=== PATIENT | female | born 1975 | race Caucasian/White ===

== ENCOUNTER 2021-08-28 22:40 | Observation (INO) | payer BC ==
[2021-08-28 23:32] LABS: CHLORIDE,CL 103 mEq/L (98-106); SODIUM,NA 142 mEq/L (136-145)
[2021-08-29] MEDS: Nitroglycerin 0.4 MG Tab.SL SL ONE (00:09)
[2021-08-29] MEDS: Aspirin 81 MG Tab.Chew PO ONE (00:09)
--- NOTE | 2021-08-29 00:32 | EDM.PDOC ---
ED HPI GENERAL MEDICAL PROBLEM - General Chief Complaint: Chest Pain Stated Complaint: chest pain Time Seen by Provider: 08/28/21 23:00 Source of Information: Reports: Patient History Limitations: Reports: No Limitations - History of Present Illness INITIAL COMMENTS - FREE TEXT/NARRATIVE: Miguel is a 46 yo female who presents to the ED with complaints of chest pain via private vehicle. She states she was at the [facility] [place] and noticed some chest discomfort. States when leaving she felt it was getting worse and having some difficulty with shortness of breath. She felt it was a 7 out [address] home[address] Decided to stop in [place] as she has a significant past cardiac history. States she did have CABG in 2006. Ended up having stents placed in 2008, 2010 and 2015. States she did have a dull headache today but didn't think anything of it. 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 States she had a Lexiscan a couple months ago d/t prior history of chest pain, which was normal. Admits this has happened two other times and both times it was found she had low potassium. 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 States she is currently being treated for bronchitis with augmentin and an inhaler. Was COVID tested and negative. Middle Mid-Sternal Chest Pain Score (Numeric/FACES): 7 - Related Data Allergies Allergy/AdvReac Type Severity Reaction Status Date / Time ceftriaxone sodium Allergy Shortness Verified 08/28/21 23:14 [From Rocephin] of Breath codeine Allergy Stomach Verified 08/28/21 23:14 Upset erythromycin base Allergy Stomach Verified 08/28/21 23:14 Upset hydromorphone [From Dilaudid] Allergy Agitation Verified 08/28/21 23:14 psyllium [From Metamucil] Allergy Anaphylactic Verified 08/28/21 23:14 Shock Home Meds: Home Meds Rosuvastatin Calcium [Crestor] 40 mg PO DAILY 08/13/18 [History] Ticagrelor [Brilinta] 90 mg PO BID 08/13/18 [History] Magnesium Oxide 500 mg PO DAILY tablet 12/31/18 [Rx] Nitroglycerin [Nitrostat] 0.4 mg SL ASDIRECTED PRN #30 tab.subl 12/31/18 [Rx] Acetaminophen [Tylenol] 650 mg PO Q4H PRN 02/17/21 [History] Cholecalciferol (Vitamin D3) [Vitamin D3] 1,000 unit PO DAILY 02/17/21 [History] EPINEPHrine [Epinephrine] 0.3 mg IM ASDIRECTED PRN 02/17/21 [History] Levothyroxine 125 mcg PO ACBREAKFAST 02/17/21 [History] Mirtazapine 15 mg PO BEDTIME 02/17/21 [History] Ustekinumab [Stelara] 90 mg SQ ASDIRECTED 02/17/21 [History] Albuterol [Ventolin HFA] 108 mcg INH ASDIRECTED PRN 08/28/21 [History] Amoxicillin/Clavulanate K [Augmentin 875-125 MG] 1 tab PO BID 08/28/21 [History] Aspirin 325 mg PO DAILY 08/28/21 [History] Betamethasone Valerate 1 applic TOP DAILY PRN 08/28/21 [History] Clobetasol [Clobetasol Propionate 0.05%] 1 applic TOP ASDIRECTED 08/28/21 [History] Fludrocortisone [Florinef] 0.5 mg PO ASDIRECTED 08/28/21 [History] Hydrocortisone 10 mg PO TID 08/28/21 [History] dexAMETHasone [Decadron] 1 ml INJECT ASDIRECTED PRN 08/28/21 [History] guaiFENesin [Guaifenesin ER] 600 mg PO BID 08/28/21 [History] lisinopriL [Lisinopril] 20 mg PO DAILY 08/28/21 [History] metFORMIN HCl [Metformin HCl ER] 1,000 mg PO DAILY 08/28/21 [History] Past Medical History HEENT History: Reports: Impaired Vision Cardiovascular History: Reports: Bypass, High Cholesterol, Hypertension, [place], Stents, Other (See Below) Other Cardiovascular History: 2007 bypass. 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: Musculoskeletal History: Reports: Arthritis, Back Pain, Chronic, Other (See Below) Other Musculoskeletal History: knee, low back pain Psychiatric History: Reports: Anxiety, Bipolar, Depression Endocrine/Metabolic History: Reports: Arcadia's Disease, Diabetes, Type II, Hy pokalemia, Hypothyroidism Hematologic History: Reports: Anticoagulation Therapy Immunologic History: Reports: Immunosuppression Dermatologic History: Reports: Psoriasis - Past Surgical History Cardiovascular Surgical History: Reports: Coronary Artery Bypass, Coronary Artery Stent, Other (See Below) Other Cardiovascular Surgeries/Procedures: inferior vena cava balloon Other Respiratory Surgeries/Procedures: treated for bronchitis at this time GI Surgical History: Reports: Cholecystectomy, Colonoscopy Female Surgical History: Reports: Hysterectomy Endocrine Surgical History: Reports: None Neurological Surgical History: Reports: Laminectomy - Past Imaging History Past Imaging History: Reports: CAT Scan, Xray Social & Family History - Family History Family Medical History: No Pertinent Family History - Tobacco Use Tobacco Use Status *Q: Former Tobacco User Years of Tobacco use: 20 Packs/Tins Daily: 0.5 Used Tobacco, but Quit: Yes Month/Year Tobacco Last Used: 5 - Caffeine Use Caffeine Use: Reports: Soda - Recreational Drug Use Recreational Drug Use: No ED ROS GENERAL - Review of Systems Review Of Systems: See Below Constitutional: Denies: Fever, Chills HEENT: Reports: Sinus Problem Respiratory: Reports: Shortness of Breath. Denies: Wheezing, Pleuritic Chest Pain, Cough, Sputum Cardiovascular: Reports: Chest Pain, Blood Pressure Problem. Denies: Edema, Lightheadedness, Palpitations, Syncope GI/Abdominal: Reports: Diarrhea (chronic). Denies: Abdominal Pain, Nausea, Vomiting : Reports: No Symptoms Skin: Reports: No Symptoms Neurological: Reports: Headache Psychiatric: Reports: No Symptoms Hematologic/Lymphatic: Reports: No Symptoms Immunologic: Reports: No Symptoms ED EXAM, GENERAL - Physical Exam Exam: See Below Exam Limited By: No Limitations General Appearance: Alert, WD/WN, No Apparent Distress Ears: Normal External Exam, Hearing Grossly Normal Nose: Normal Inspection, No Blood Throat/Mouth: Normal Inspection, Normal Lips, Normal Teeth, Normal Gums, Normal Oropharynx, Normal Voice, No Airway Compromise Head: Atraumatic, Normocephalic Neck: Normal Inspection, Supple Respiratory/Chest: No Respiratory Distress, Lungs Clear, Normal Breath Sounds, No Accessory Muscle Use Cardiovascular: Normal Peripheral Pulses, Regular Rate, Rhythm, No Edema, No Murmur GI/Abdominal: Normal Bowel Sounds, Soft, Non-Tender, No Organomegaly, No Distention, No Mass Extremities: Normal Inspection, No Pedal Edema Neurological: Alert, Oriented, Normal Cognition, No Motor/Sensory Deficits Psychiatric: Normal Affect, Normal Mood Skin Exam: Warm, Dry, Intact, Normal Color, No Rash #1 Interpretation EKG Date: 08/28/21 Time: 22:45 Rhythm: NSR Rate (Beats/Min): 87 P-Wave: Present QRS: Normal ST-T: Normal Comparison: NA - No Prior EKG Course - Vital Signs Last Recorded V/S: Last Vital Signs Temp 97.8 F 08/28/21 22:45 Pulse 84 08/29/21 00:09 Resp 15 08/28/21 22:45 BP 183/113 H 08/29/21 00:09 Pulse Ox 98 08/28/21 22:45 - Orders/Labs/Meds Orders: Active Orders 24 hr Category Date Time Status Patient Status Manage Transfer [TRANSFER] Routine ADT 08/29/21 00:12 Active Chest 2V [CR] Routine Exams 08/28/21 Taken Resuscitation Status Routine Resus Stat 08/29/21 00:13 Ordered Labs: Laboratory Tests 08/28/21 08/28/21 08/28/21 Range/Units 23:14 23:14 23:14 WBC 9.3 (4.0-11.0) 10^3/uL RBC 4.59 (4.00-5.50) x10^6/uL Hgb 13.7 (12.0-16.0) g/dL Hct 39.3 (37.0-47.0) % MCV 85.6 (83.0-97.0) fL MCH 29.8 (27.0-32.0) pg MCHC 34.9 (32.0-36.0) g/dL RDW Coeff of Jorge 13.8 (11.0-15.0) % Plt Count 307 (150-400) 10^3/uL Immature Gran % (Auto) 0.1 (0.0-4.9) % Neut % (Auto) 51.3 (41-71) % Lymph % (Auto) 34.0 (24-44) % [place] % (Auto) 6.7 (0-10) % Eos % (Auto) 7.0 H (0-6) % Baso % (Auto) 0.9 (0-1) % Neut # (Auto) 4.75 (1.80-8.00) x10^3/uL Lymph # (Auto) 3.15 (0.60-5.00) 10^3/uL [place] # (Auto) 0.62 (0.00-1.50) 10^3/uL Eos # (Auto) 0.65 (0.00-1.50) 10^3/uL Baso # (Auto) 0.08 (0.00-0.50) 10^3/uL Immature Gran # (Auto) 0.01 (0.00-0.49) 10^3/uL PT 9.3 L (9.7-12.3) SEC INR 0.84 L (0.92-1.18) APTT 24.0 (23.2-32.3) SEC Sodium 142 (136-145) mEq/L Potassium 3.1 L (3.5-5.0) mEq/L Chloride 103 (98-106) mEq/L Carbon Dioxide 28 (21-32) mmol/L BUN 10 (7-18) mg/dL Creatinine 1.0 (0.6-1.0) mg/dL Est Cr Clr Drug Dosing TNP Estimated GFR (MDRD) 59 L (>=60) mL/min Glucose 151 H (75-99) mg/dL Calcium 9.0 (8.4-10.1) mg/dL Total Bilirubin 0.3 (0.0-1.0) mg/dL AST 15 (15-37) U/L ALT 32 (12-78) U/L Alkaline Phosphatase 103 (46-116) U/L Lactate Dehydrogenase 167 (100-190) U/L Creatine Kinase 107 (21-215) U/L Troponin I High Sens 14.4 (<=51) pg/mL Total Protein 7.8 (6.4-8.2) g/dL Albumin 3.8 (3.4-5.0) g/dL Lipase 126 (73-393) U/L Meds: Medications Discontinued Medications Generic Name Dose Route Start Last Admin Trade Name Freq PRN Reason Stop Dose Admin Aspirin 324 mg 08/28/21 22:55 08/29/21 00:09 Aspirin 81 Mg Tab.Chew PO 08/28/21 22:56 324 mg ONETIME ONE Administration Metoprolol Tartrate 25 mg 08/28/21 22:56 Metoprolol Tartrate 5 Mg/5 Ml Sdv IVPUSH 08/28/21 22:57 ONETIME ONE Nitroglycerin 0.4 mg 08/28/21 22:56 08/29/21 00:09 Nitroglycerin 0.4 Mg Tab.Sl SL 08/28/21 22:57 0.4 mg ONETIME ONE Administration Departure - Departure Time of Disposition: 00:20 Disposition: Refer to Observation Clinical Impression: Hypokalemia, Atypical chest pain Referrals: PCP,Not In Area [Primary Care Provider] - Sepsis Event Note (ED) - Evaluation Sepsis Screening Result: No Definite Risk - Focused Exam Vital Signs: Vital Signs Temp Pulse Pulse Resp BP BP Pulse Ox 08/29/21 00:09 84 183/113 H 08/28/21 22:45 97.8 F 84 15 183/113 H 98 - Problem List & Annotations (1) Atypical chest pain SNOMED Code(s): 106506398 Code(s): R07.89 - OTHER CHEST PAIN Status: Acute Current Visit: Yes (2) Hypokalemia SNOMED Code(s): 15639227 Code(s): E87.6 - HYPOKALEMIA Status: Acute Current Visit: Yes - My Orders Last 24 Hours: My Active Orders 08/28/21 Chest 2V [CR] Routine 08/29/21 00:12 Patient Status Manage Transfer [TRANSFER] Routine 08/29/21 00:13 Resuscitation Status Routine - Assessment/Plan Admission H&P: Please use this note as an admission H&P Last 24 Hours: My Active Orders 08/28/21 Chest 2V [CR] Routine 08/29/21 00:12 Patient Status Manage Transfer [TRANSFER] Routine 08/29/21 00:13 Resuscitation Status Routine Plan: Patient's cardiac work up was grossly unremarkable. Potassium was low tonight. With patient's significant cardiac history and low potassium will admit observation for potassium replacement and serial troponin levels. Patient verbalized understanding and in agreement. Chest x-ray negative tonight as well. Pain currently has subsided. Blood pressure is gradually coming down as well.
[2021-08-29] MEDS ORDERED: Sodium Chloride 0.9% 10 ML Syringe FLUSH PRN (00:33)
[2021-08-29] MEDS ORDERED: Morphine 2 MG/ML SYRINGE IVPUSH PRN (00:33)
[2021-08-29] MEDS ORDERED: Nitroglycerin 0.4 MG Tab.SL SL PRN (00:33)
[2021-08-29] MEDS ORDERED: Acetaminophen 325 MG Tab PO PRN (00:33)
[2021-08-29] MEDS: Metoprolol Tartrate 5 MG/5 ML SDV IVPUSH ONE (01:00)
[2021-08-29] MEDS: Potassium Chloride Riders 40 MEQ in Premix Bag 1 BAG IV ONE (01:04)
[2021-08-29] MEDS: Mirtazapine 15 MG Tab PO SCH (01:04)
[2021-08-29] MEDS: Sodium Chloride 0.9% 500 ML IV ONE (01:05)
[2021-08-29 07:36] LABS: CHLORIDE,CL 109 mEq/L (98-106); SODIUM,NA 143 mEq/L (136-145)
[2021-08-29] MEDS: Lisinopril 20 MG Tab PO SCH (07:45)
[2021-08-29] MEDS: Levothyroxine 125 MCG Tab PO SCH (07:45)
[2021-08-29] MEDS: Aspirin 325 MG Tab.EC PO SCH (07:45)
[2021-08-29] MEDS: Simvastatin 40 MG Tab PO SCH (07:45)
[2021-08-29 07:46] VITALS: BP 117/66
[2021-08-29] MEDS ORDERED: TICAGRELOR 90 MG PO SCH (08:00)
[2021-08-29] MEDS ORDERED: Hydrocortisone 20 MG Tab PO SCH ×2 (08:00→15:00)
[2021-08-29] MEDS: metFORMIN 500 MG Tab PO SCH (08:50)
[2021-08-29] MEDS: HYDROCORTISONE 10 MG PO SCH (08:57)
[2021-08-29 09:25] VITALS: PULSE 83
--- NOTE | 2021-08-30 06:37 | DISCH ---
ADMISSION DIAGNOSES: 1. Atypical chest pain. 2. Known history of coronary artery disease. 3. Hypokalemia. DISCHARGE DIAGNOSIS: 1. CHEST PAIN, RESOLVED. 2. HYPOKALEMIA, RESOLVED. 3. HYPERTENSION, IMPROVED. 4. KNOWN HISTORY OF CORONARY ARTERY DISEASE. 5. TYPE 2 DIABETES. 6. HYPERLIPIDEMIA. 7. HYPERTENSION. HISTORY: The patient is a complex 46-year-old female with known history of prior CABG and multiple cardiac stents. She has been having some issues with hypertension, sees Endocrinology apparently for an apparent history of hypoadrenalism. She has been having some issues with low potassium in the past and it sounds like whenever her potassium drops, she gets this atypical chest pain. 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 She is on Brilinta for her stents. [facility]yman admitted her because of the chest pain. Her initial EKG and cardiac enzymes were normal without signs of ischemia. HOSPITAL COURSE: The patient was given 40 mEq of KCl while here. Potassium went from 3.1 on admit to 3.5 within normal range now. The troponin remains negative. Her EKG once again shows no signs of any ischemia and the patient is symptom-free at this time. She looks stable for discharge. She needs follow up with her primary provider early next week for recheck on her potassium. No magnesium was ordered and I will get one this morning as she was hypokalemic on admit. Plan will be for her to discharge home with followup with her primary providers. COMPLICATIONS: During her stay were none. CONSULTATIONS: None. DISPOSITION: Discharge home. The patient will follow up with Teagan Fernando APRN in [place] for followup. HAILEY/TYE /[id number]
[2021-08-30] MEDS ORDERED: HYDROCORTISONE 10 MG PO SCH (08:00)
== END 2021-08-29 11:10 | disposition home or self-care (01) ==
LOC: CC.ED 22:40 → CC.MS 08-29 00:12 → UNDOADMOB 08-29 00:31 → CC.MS 08-29 00:31
PROVIDERS: ADMIT Physician Assistant Medical; ATTEND Family Medicine
DX: R07.89 Other chest pain (principal); E87.6 Hypokalemia; E78.00 Pure hypercholesterolemia, unspecified; I10 Essential (primary) hypertension; I25.2 Old myocardial infarction; G47.30 Sleep apnea, unspecified; E11.9 Type 2 diabetes mellitus without complications; I25.10 Atherosclerotic heart disease of native coronary artery without angina pectoris; Z98.890 Other specified postprocedural states; Z87.891 Personal history of nicotine dependence; Z90.49 Acquired absence of other specified parts of digestive tract; Z95.1 Presence of aortocoronary bypass graft; Z88.8 Allergy status to other drugs, medicaments and biological substances; Z88.5 Allergy status to narcotic agent; Z79.899 Other long term (current) drug therapy
CPT/HCPCS: 36415; 71046; 80048; 80053; 82550; 83615; 83690; 83735; 84484; 85025; 85610; 85730; 93005; 96365; 96366; 99285; A9270; G0378; J3480; J7040